=== PATIENT | male | born 1935 | race Caucasian/White ===

== ENCOUNTER → 2017-04-13 | Outpatient (CLI) | payer BC ==
[~2017-04-13] MED LIST: ANT25 PO; ASCO500T3 PO; BRIN1SUS OPB; CHOL1000 PO; CYAN500T PO; DOCU100T7 PO; FOLI400T41 PO; GLUC15002 PO; LUTE20TA PO; MAGN500T4 PO; MELA1TAB3 PO; OMEG10002 PO; PLV75 PO; PYRI100T2 PO; RIVA1DIS TD; SIMV-151 PO; THIA1TAB11 PO; TRAV0.00 OPB; VITA1CAP59 PO; VITA400C15 PO; ZINC1TAB PO; [UNRECOGNIZED DRUG - CODE] PO
[2017-04-13 09:57] LABS: CALCIUM 9.1 mg/dl (8.5-10.1)
[2017-04-13 10:04] LABS: ALT/SGPT 28 U/L (12-78); AST/SGOT 20 U/L (15-37); BLOOD UREA NITROGEN 13 mg/dl (7-18); BUN/CREATININE RATIO 14.9 (10-20); CARBON DIOXIDE 29 mmol/L (21-32); CHLORIDE 108 mmol/L (98-107); GLUCOSE 94 mg/dl (70-99); POTASSIUM 3.9 mmol/L (3.5-5.1); SODIUM 145 mmol/L (136-145)
[2017-04-13 10:06] LABS: ALB/GLOB RATIO 1.5 (0.9-2); ALKALINE PHOSPHATASE 58 U/L (45-117)
== END | disposition home or self-care (01) ==
LOC: C.LAB 06:58
PROVIDERS: ATTEND Chiropractor
DX: M17.9 Osteoarthritis of knee, unspecified (principal); R41.3 Other amnesia; G45.9 Transient cerebral ischemic attack, unspecified

== ENCOUNTER → 2017-07-20 | Outpatient (CLI) | payer BC ==
[2017-07-20 09:49] LABS: BASO % 0.3 %; BASO ABS # 0.02 K/uL (0-0.2); COMPLETE YES; HEMATOCRIT 48.6 % (42-52); IG% 0.2 %; LYMPH ABS # 1.91 K/uL (1.2-3.4); MEAN CORPUSCULAR HEMOGLOBIN 30.3 pg (25-34); MEAN CORPUSCULAR HGB CONC 32.9 g/dl (32-36); MEAN PLATELET VOLUME 11.8 fL (7.4-10.4); MONO % 11.9 %; NEUT % 53.6 %; PLATELET COUNT 116 K/uL (130-400); RED BLOOD COUNT 5.28 M/uL (4.7-6.1); WHITE BLOOD COUNT 5.97 K/uL (4.8-10.8)
[2017-07-20 10:00] LABS: ALT/SGPT 23 U/L (12-78); AST/SGOT 16 U/L (15-37); BLOOD UREA NITROGEN 14 mg/dl (7-18); BUN/CREATININE RATIO 15.4 (10-20); CALCIUM 8.9 mg/dl (8.5-10.1); CARBON DIOXIDE 32 mmol/L (21-32); CHLORIDE 108 mmol/L (98-107); CHOLESTEROL 158 mg/dl (0-200); CREATININE 0.92 mg/dl (0.60-1.40); GLUCOSE 91 mg/dl (70-99); POTASSIUM 4.2 mmol/L (3.5-5.1); SODIUM 144 mmol/L (136-145); TRIGLYCERIDES 132 mg/dl (0-150); VERY LOW DENSITY LIPOPROT CALC 26 mg/dl
[2017-07-20 10:03] LABS: ALB/GLOB RATIO 1.3 (0.9-2); ALKALINE PHOSPHATASE 59 U/L (45-117); HDL CHOLESTEROL 40 mg/dl; LDL CHOLESTEROL CALCULATED 92 mg/dl
== END | disposition home or self-care (01) ==
LOC: C.LAB 07:09
PROVIDERS: ATTEND Nurse Practitioner Family
DX: N40.0 Benign prostatic hyperplasia without lower urinary tract symptoms (principal); E78.00 Pure hypercholesterolemia, unspecified; F01.50 Vascular dementia, unspecified severity, without behavioral disturbance, psychotic disturbance, mood disturbance, and anxiety; E55.9 Vitamin D deficiency, unspecified; D69.6 Thrombocytopenia, unspecified

== ENCOUNTER → 2017-11-18 | Outpatient (CLI) | payer BC | END | disposition home or self-care (01) | LOC: C.PATHSPEC 16:10 | PROVIDERS: ATTEND Physician Assistant | DX: B07.9 Viral wart, unspecified (principal); D23.62 Other benign neoplasm of skin of left upper limb, including shoulder; D23.39 Other benign neoplasm of skin of other parts of face ==

== ENCOUNTER → 2017-11-18 | Outpatient (CLI) | payer BC | END | disposition home or self-care (01) | LOC: C.LABSPEC 16:23 | PROVIDERS: ATTEND Physician Assistant | DX: L98.9 Disorder of the skin and subcutaneous tissue, unspecified (principal) ==

== ENCOUNTER → 2018-01-21 | Outpatient (CLI) | payer BC ==
[~2018-01-21] MED LIST changes: +GALA24CA PO; -[UNRECOGNIZED DRUG - CODE] PO
[2018-01-21 12:14] LABS: BASO % 0.3 %; BASO ABS # 0.02 K/uL (0-0.2); EOS % 1.7 %; EOS ABS # 0.13 K/uL (0-0.5); HEMATOCRIT 46.7 % (42-52); IG# 0.02 K/uL (0.00-0.02); LYMPH % 28.2 %; LYMPH ABS # 2.21 K/uL (1.2-3.4); MEAN CELL VOLUME 90.5 fL (80-100); MEAN CORPUSCULAR HGB CONC 34.3 g/dl (32-36); MEAN PLATELET VOLUME 11.9 fL (7.4-10.4); MONO % 8.3 %; MONO ABS # 0.65 K/uL (0.11-0.59); NEUT % 61.2 %; PLATELET COUNT 129 K/uL (130-400); RED CELL DISTRIBUTION WIDTH CV 13.4 % (11.5-14.5); RED CELL DISTRIBUTION WIDTH SD 44.3 fL (36.4-46.3); WHITE BLOOD COUNT 7.83 K/uL (4.8-10.8)
[2018-01-21 12:45] LABS: ALBUMIN 4.1 gm/dl (3.4-5.0); ALT/SGPT 34 U/L (12-78); BLOOD UREA NITROGEN 12 mg/dl (7-18); CALCIUM 9.6 mg/dl (8.5-10.1); CARBON DIOXIDE 30 mmol/L (21-32); CHOLESTEROL 197 mg/dl (0-200); CREATININE 0.92 mg/dl (0.60-1.40); GLUCOSE 95 mg/dl (70-99); POTASSIUM 4.3 mmol/L (3.5-5.1); SODIUM 140 mmol/L (136-145)
[2018-01-21 12:49] LABS: ALKALINE PHOSPHATASE 68 U/L (45-117); AST/SGOT 22 U/L (15-37); LDL CHOLESTEROL CALCULATED 118 mg/dl
[2018-01-21 14:58] LABS: CREATININE RANDOM URINE 88.4 mg/dl
== END | disposition home or self-care (01) ==
LOC: C.LAB 09:54
PROVIDERS: ATTEND Nurse Practitioner Family
DX: E78.00 Pure hypercholesterolemia, unspecified (principal); E55.9 Vitamin D deficiency, unspecified; D69.6 Thrombocytopenia, unspecified

== ENCOUNTER → 2018-06-03 | Outpatient (CLI) | payer BC | END | disposition home or self-care (01) | LOC: C.LABSPEC 16:53 | PROVIDERS: ATTEND Nurse Practitioner Family | DX: L72.0 Epidermal cyst (principal) ==

== ENCOUNTER 2019-06-02 17:50 | Inpatient (IN) ==
[2019-06-02] MEDS ORDERED: SODIUM CHLORIDE 0.9% 1000ML 1,000 ML IV SCH (19:00)
[2019-06-02 19:23] LABS: Basophils # (auto) 0.02 K/uL (0-0.2); Basophils % (auto) 0.2 %; Eosinophils # (auto) 0.11 K/uL (0-0.5); Eosinophils % (auto) 1.3 %; Hematocrit (blood only) 48.4 % (42-52); Hemoglobin 16.7 g/dL (14.0-18.0); Immature Granulocytes # (auto) 0.02 K/uL (0.00-0.02); Immature Granulocytes % (auto) 0.2 %; Lymphocytes # (auto) 1.49 K/uL (1.2-3.4); Lymphocytes % (auto) 17.9 %; Mean Corpuscular Hgb Conc 34.5 g/dL (32-36); Mean Corpuscular Volume 90.1 fL (80-100); Mean Platelet Volume 12.3 fL (7.4-10.4); Monocytes # (auto) 0.78 K/uL (0.11-0.59); Monocytes % (auto) 9.4 %; Platelet Count 132 K/uL (130-400); RDW Coefficient of Variation 13.4 % (11.5-14.5); Red Blood Count 5.37 M/uL (4.7-6.1); White Blood Count 8.32 K/uL (4.8-10.8)
[2019-06-02 19:39] LABS: Alanine Aminotransferase 34 U/L (12-78); Albumin Level 4.1 gm/dl (3.4-5.0); Aspartate Aminotransferase 24 U/L (15-37); Blood Urea Nitrogen 11 mg/dl (7-18); Calcium 9.6 mg/dl (8.5-10.1); Carbon Dioxide 31 mmol/L (21-32); Chloride 107 mmol/L (98-107); Est GFR (African American) 88.1; Glucose 90 mg/dl (70-99); Potassium 3.8 mmol/L (3.5-5.1); Prothrombin Time 10.3 Seconds (9.0-12.0); Sodium 143 mmol/L (136-145)
--- NOTE | 2019-06-02 19:48 | XRay Report ---
SINGLE VIEW PELVIS CLINICAL HISTORY: Fall. FINDINGS: 2 AP, portable, supine pelvic radiographs are compared to study dated 05/11/2018. The skeleta l structures are osteopenic. There is no radiographic evidence of acute fracture involving the hips o r bony pelvis. Moderate degenerative change and joint space narrowing is seen in the hips. Mild degen erative sclerosis is noted in the sacroiliac joints. Lumbosacral spondylosis is partially imaged. The re are numerous pelvic phleboliths. Brachytherapy seeds are noted in the prostate gland. There is no evidence of bowel obstruction. The overlying soft tissues are normal as imaged. IMPRESSION: No acute bony abnormality is identified. Electronically signed by: Lopez Godoy M.D. 06/02/2019 7:46 PM
--- NOTE | 2019-06-02 19:49 | XRay Report ---
SINGLE VIEW CHEST CLINICAL HISTORY: Generalized weakness. Fall. FINDINGS: An AP, portable, upright chest radiograph is compared to study dated 04/24/2008. The examina tion is degraded by portable technique and patient rotation. The heart is enlarged and there is ath erosclerotic calcification of the thoracic aorta. The pulmonary vasculature is noncongested. Chronic interstitial thickening is similar to previous. There is bibasilar scarring/atelectasis. No airspace consolidation or large pleural effusion is identified. No pneumothorax is seen. The skeletal structur es are osteopenic. The bony thorax is grossly intact. IMPRESSION: Cardiomegaly with no acute cardiopulmonary abnormality. Electronically signed by: Lopez Godoy M.D. 06/02/2019 7:48 PM
[2019-06-02 19:50] LABS: Albumin Globulin Ratio 1.3 (0.9-2); Alkaline Phosphatase 81 U/L (45-117); Bilirubin,Total 0.9 mg/dl (0.2-1); Globulin 3.1 gm/dl (2.5-4.0); Total Protein 7.2 gm/dl (6.4-8.2); Troponin I < 0.015 ng/ml (0-0.045)
--- NOTE | 2019-06-02 20:07 | CT Scan Report ---
CT SCAN OF THE BRAIN WITHOUT IV CONTRAST CLINICAL HISTORY: Fall. COMPARISON STUDY: CT of the brain performed earlier the same day 06/02/2019. TECHNIQUE: Unenhanced axial CT scan of the brain is performed from the vertex to the skull base. A do se lowering technique was utilized adhering to the principles of ALARA. CT DOSE: 1116.45 mGy.cm FINDINGS: Brain parenchyma: There are age-related involutional changes noting moderate subcortical and periven tricular microangiopathic change. 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 Ther e is no hemorrhage, mass effect, or evidence of acute territorial ischemia by CT criteria. Arguello-white matter differentiation is preserved. No extra-axial fluid collection is seen. Ventricles, sulci, cisterns: Prominent secondary to involutional change. Intracranial vasculature: There is atherosclerotic calcification of the cavernous carotid and vertebr al arteries. Calvarium: The skeletal structures are osteopenic. No depressed calvarial fracture is identified. Sinuses and mastoids: The visualized paranasal sinuses are clear. The mastoid air cells are well pneu matized. Orbits: The bony orbits are grossly intact. IMPRESSION: There is no hemorrhage, mass effect, or evidence of acute territorial ischemia by CT jagt janeth. No significant change from today's earlier examination. Electronically signed by: Lopez Godoy M.D. 06/02/2019 8:06 PM
--- NOTE | 2019-06-02 20:12 | CT Scan Report ---
CT SCAN OF THE CERVICAL SPINE CLINICAL HISTORY: Fall. COMPARISON STUDY: CT of the cervical spine performed earlier the same day 06/02/2019. TECHNIQUE: CT scan of the cervical spine is performed from the skull base to the upper thoracic spine . Images are reviewed in the axial, sagittal, and coronal planes. IV contrast was not administered fo r this examination. A dose lowering technique was utilized adhering to the principles of ALARA. FINDINGS: Skeletal structures: The skeletal structures are osteopenic. There is no evidence of fracture or subl uxation involving the cervical spine. Vertebral body height and alignment are maintained. There is st raightening of the cervical lordosis with reversal centered at C4-C5. Anterior osteophytes are seen t hroughout. The odontoid process and lateral masses are intact. The atlantoaxial articulation is prese rved noting productive degenerative change. The spinous processes appear intact. There is moderate mu ltilevel cervical spondylosis. Uncovertebral and facet arthropathy contribute to neural foraminal kayla nosis at several levels. Intervertebral discs: There is advanced disc space narrowing seen at C5-C6 and C6-C7. Moderate disc s pace narrowing is seen at C4-C5. Central canal: Posterior disc osteophyte complexes at C4-C5, C5-C6, and C6-C7 likely contribute to ac quired compromise of the central canal. Soft tissues: The prevertebral and paraspinous soft tissues are within normal limits. A large calcifi cation is noted in the left thyroid lobe. Calvarium: The visualized calvarium at the skull base appears intact. Brain parenchyma: Partially visualized brain parenchyma the skull base is within normal limits. Sinuses and mastoids: The visualized paranasal sinuses are clear. The mastoid air cells are well pneu matized. Lung apices: Clear as visualized. IMPRESSION: There is no evidence of fracture or subluxation involving the cervical spine. No change f rom today's earlier examination. Electronically signed by: Lopez Godoy M.D. 06/02/2019 8:11 PM
[2019-06-02 20:27] LABS: Appearance Urine Clear (Clear); Bilirubin Urine Negative (Negative); Blood Urine Negative (Negative); Color Urine Yellow; Glucose Urine UA Negative (Negative); Ketones Urine Negative (Negative); Leukocyte Esterase Urine Negative (Negative); Nitrite Urine Negative (Negative); Protein Urine Negative (Negative); Specific Gravity Urine 1.015 (1.000-1.030); Urobilinogen Urine Negative (Negative); pH Urine 7.5 (4.5-7.5)
--- NOTE | 2019-06-02 23:45 | History & Physical Report ---
Date of Service June 02, 2019 Assessment & Plan (1) Altered mental status: Altered mental status confusion/dementia/anxiety with depression- Underlying vascular dementia that is likely progressive. Decreased oral intake. Hold trazodone, lorazepam and Transderm scopolamine He may have had an additional CVA recently, however, CT head is normal, and will likely need sedated to perform an MRI. Consult neurology. For now, hold nutraceuticals to minimize pill taking: Vitamin C, calcium carbona te, vitamin D3, maine, lutein, mag oxide, fish oil Present on Admission?: Yes (2) Vascular dementia: Continue clopidogrel. Present on Admission?: Yes (3) Recurrent falls: Likely multifactorial: Progressive dementia. Recent institution of Lorazepam, which will be held. Had taken his first dose of trazodone 100 mg at bedtime last night, which will also be held, may be contributing to falls associated with orthostatic hypotensi on. Present on Admission?: Yes (4) Facial trauma: Facial trauma/facial contusion/abrasions- Imaging negative for fractures. Consult wound care Present on Admission?: Yes (5) Facial contusion: See above Present on Admission?: Yes (6) Hypercholesterolemia: Appears to no longer be on a statin. Present on Admission?: Yes (7) Depression with anxiety: Vascular dementia/depression with anxiety- Progressive. Hold lorazepam due to potential side effects. Hold trazodone due to potential side effect of orthostatic hypotension and confusion. Present on Admission?: Yes History of Present Illness Chief Complaint: The patient presents to the emergency department for the second time today with recurrent falls. Primary Care Provider: [facility] The patient is a 84-year-old male with a past medical history including vascular dementia, who has had progressively worsening confusion over the past few months and more recently has had recurrent falls. He was assessed in the ED this morning, was released back to [facility] in [place], but was brought back into the emergency department by his daughter this evening, due to worsening confusion and a fall this morning. She reports that he has been getting progressively weaker. She was concerned that Ativan he had been given to help with agitation may have made things worse. Of note, the patient was given trazodone 100 mg at bedtime for the first time last night. Allergies Allergy/AdvReac Type Severity Reaction Status Date / Time cashew nut Allergy Intermediate SWELLING Verified 06/02/19 05:39 OF TONGUE AND THROAT galantamine Allergy Unknown ON Verified 06/02/19 05:39 [facility] gluten Allergy Unknown ON Verified 06/02/19 05:39 [facility] wheat Allergy Unknown ON Verified 06/02/19 05:39 [facility] lactase [From [facility]] AdvReac Unknown ON [facility] Verified 06/02/19 05:39 LIST Home Medications Home Medications Medication Instructions Recorded Confirmed Type ascorbic acid (vitamin C) 500 mg 500 mg PO QAM cap 03/23/19 06/02/19 History capsule calcium carbonate 500 mg calcium 500 mg PO QAM tab 03/23/19 06/02/19 History (1,250 mg) tablet cyanocobalamin (vit B-12) 500 mcg 500 mcg PO BID tab 03/23/19 06/02/19 History tablet maine (Zingiber officinalis) 250 250 mg PO BID cap 03/23/19 06/02/19 History mg capsule lutein 20 mg tablet 20 mg PO QAM tab 03/23/19 06/02/19 History magnesium oxide 400 mg (241.3 mg 400 mg PO QAM #60 tab 03/23/19 06/02/19 History magnesium) tablet omega-3 acid ethyl esters 1 gram 1 g PO QAM #60 cap 03/23/19 06/02/19 History capsule omeprazole 20 mg tablet,delayed 20 mg PO QAM tab 03/23/19 06/02/19 History release cholecalciferol (vitamin D3) 2,000 2,000 units PO BIDM tab 05/26/19 06/02/19 History unit tablet trazodone 100 mg tablet 100 mg PO HS #30 tab 06/01/19 06/02/19 Rx clopidogrel 75 mg PO QAM 06/02/19 06/02/19 History glucos sul [id number] 1 cap PO QAM 06/02/19 06/02/19 History [Glucosamine Chondroitin] lorazepam 1 mg PO TID PRN 06/02/19 06/02/19 History peg 400-propylene glycol [Systane 1 drp OPHTHALMIC (EYE) DAILY 06/02/19 06/02/19 History Ultra] scopolamine base [Transderm-Scop] 1 patch TRANSDERMAL Q3D 06/02/19 06/02/19 History tafluprost (PF) [Zioptan (PF)] 1 drp OPB QPM 06/02/19 06/02/19 History zinc gluconate 30 mg PO .ON HOLD 06/02/19 06/02/19 History Past Med/Surg History Medical History Vitamin D deficiency (Chronic) Vascular dementia (Chronic) Urinary incontinence (Chronic) Hypercholesterolemia (Chronic) Hemorrhoids (Chronic) Hearing loss (Chronic) Glaucoma (Chronic) Depression with anxiety (Chronic) Chronic constipation (Chronic) Candidal intertrigo (Chronic) Benign prostate hyperplasia (Chronic) History of actinic keratosis (Resolved) History of basal cell carcinoma (Resolved) History of seborrheic dermatitis (Resolved) History of seborrheic keratosis (Resolved) History of stroke (Resolved) History of transient cerebral ischemia (Resolved) Personal history of prostate cancer (Resolved) Thrombocytopenia (Resolved) Surgical History History of prostate surgery S/P cataract surgery S/P hernia repair Family History Sister Breast cancer Lung cancer Mother Diabetes Dementia Social History Preferred Language: Armenian Communication Ability: Impaired Buyer Liaison Required: No Beliefs That Will Affect Care: None marital status: Single Current Living Situation: Personal Care Facility current occupational status: retired Other Information That Helps Us Care for You: No Feels Safe at Home: Yes Safety Concerns: Feels Safe At This Time Smoking Status: Never smoker Hx Alcohol Use: No Hx Substance Use: No Childhood Exposure to Second-Hand Smoke: No Dental Care, Regularly: Yes Physical Activity Frequency: 5-6 Times per Week Seatbelt Use: always Sunscreen Use: Yes Review of Systems Review of Systems: Unobtainable due to cognitive status Physical Exam Physical Exam: The patient is awake, alert, oriented x1. He has surface abrasions on forehead, nose and cheeks bilaterally. Sitting upright in bed and in no acute distress. HEENT--PERRL, EOMI, mucous membranes and oropharynx dry. Neck--supple. No JVD. No bruits. Thyroid normal, trachea midline, no adenopathy. Heart--normal S1 and S2. No murmurs, rubs or gallops. Lungs--clear bilaterally, no respiratory distress, no accessory muscle use. Abdomen--normal bowel sounds and soft. Nontender. Nondistended. Extremities--no cyanosis or clubbing. No edema. There are good distal pulses b/l. Dermatologic--fresh surface abrasions noted on forehead, nose, bilateral cheeks. Scattered ecchymoses. Neurologic--cranial nerves II through XII grossly intact. Rheumatologic--normal range of motion. Psychiatric--confused. Results & Data Vital Signs (Past 12 Hours) Vital Signs Temp Pulse Pulse Resp BP BP Pulse Ox 06/02/19 22:52 60 18 137/79 97 06/02/19 22:21 59 L 20 146/87 H 94 06/02/19 20:13 60 18 142/74 H 92 06/02/19 19:29 59 L 17 130/75 06/02/19 17:56 98.1 F 83 17 141/78 H 92 Laboratory Results Laboratory Results WBC 8.32 K/uL (4.8-10.8) 06/02/19 17: RBC 5.37 M/uL (4.7-6.1) 06/02/19 17:29 Hgb 16.7 g/dL (14.0-18.0) 06/02/19 17:29 Hct 48.4 % (42-52) 06/02/19 17:29 MCV 90.1 fL (80-100) 06/02/19 17:29 MCH 31.1 pg (25-34) 06/02/19 17:29 MCHC 34.5 g/dL (32-36) 06/02/19 17:29 RDW Std Deviation 44.0 fL (36.4-46.3) 06/02/19 17:29 RDW Coeff of Irais 13.4 % (11.5-14.5) 06/02/19 17:29 Plt Count 132 K/uL (130-400) 06/02/19 17:29 MPV 12.3 fL (7.4-10.4) H 06/02/19 17:29 Immature Gran % (Auto) 0.2 % 06/02/19 17:29 Neut % (Auto) 71.0 % 06/02/19 17:29 Lymph % (Auto) 17.9 % 06/02/19 17:29 [place] % (Auto) 9.4 % 06/02/19 17: Eos % (Auto) 1.3 % 06/02/19 17:29 Baso % (Auto) 0.2 % 06/02/19 17: Immature Gran # (Auto) 0.02 K/uL (0.00-0.02) 06/02/19 17: Neut # (Auto) 5.90 K/uL (1.4-6.5) 06/02/19 17: Lymph # (Auto) 1.49 K/uL (1.2-3.4) 06/02/19 17: [place] # (Auto) 0.78 K/uL (0.11-0.59) H 06/02/19 17: Eos # (Auto) 0.11 K/uL (0-0.5) 06/02/19 17: Baso # (Auto) 0.02 K/uL (0-0.2) 06/02/19 17: PT 10.3 Seconds (9.0-12.0) 06/02/19 17: INR 1.0 (0.9-1.1) 06/02/19 17: Sodium 143 mmol/L (136-145) 06/02/19 17: Potassium 3.8 mmol/L (3.5-5.1) 06/02/19 17: Chloride 107 mmol/L (98-107) 06/02/19 17: Carbon Dioxide 31 mmol/L (21-32) 06/02/19 17:29 Anion Gap 5.0 (3-11) 06/02/19 17:29 BUN 11 mg/dl (7-18) 06/02/19 17: Creatinine 0.91 mg/dl (0.6-1.4) 06/02/19 17:29 Est Cr Clr Drug Dosing Not Reportable 06/02/19 17:29 Est GFR ( Amer) 88.1 06/02/19 17:29 Est GFR (Non-Af Amer) 76.0 06/02/19 17:29 BUN/Creatinine Ratio 12.0 (10-20) 06/02/19 17:29 Glucose 90 mg/dl (70-99) 06/02/19 17:29 Calcium 9.6 mg/dl (8.5-10.1) 06/02/19 17:29 Total Bilirubin 0.9 mg/dl (0.2-1) 06/02/19 17:29 AST 24 U/L (15-37) 06/02/19 17:29 ALT 34 U/L (12-78) 06/02/19 17:29 Alkaline Phosphatase 81 U/L (45-117) 06/02/19 17:29 Troponin I < 0.015 ng/ml (0-0.045) 06/02/19 17: Total Protein 7.2 gm/dl (6.4-8.2) 06/02/19 17: Albumin 4.1 gm/dl (3.4-5.0) 06/02/19 17: Globulin 3.1 gm/dl (2.5-4.0) 06/02/19 17: Albumin/Globulin Ratio 1.3 (0.9-2) 06/02/19 17: TSH 1.820 uIu/ml (0.300-4.500) 06/02/19 17:29 Urine Color Yellow 06/02/19 20:11 Urine Appearance Clear (Clear) 06/02/19 20:11 Urine pH 7.5 (4.5-7.5) 06/02/19 20:11 Ur Specific [place] 1.015 (1.000-1.030) 06/02/19 20:11 Urine Protein Negative (Negative) 06/02/19 20:11 Urine Glucose (UA) Negative (Negative) 06/02/19 20:11 Urine Ketones Negative (Negative) 06/02/19 20:11 Urine Blood Negative (Negative) 06/02/19 20:11 Urine Nitrite Negative (Negative) 06/02/19 20:11 Urine Bilirubin Negative (Negative) 06/02/19 20:11 Urine Urobilinogen Negative (Negative) 06/02/19 20:11 Ur Leukocyte Esterase Negative (Negative) 06/02/19 20:11 Diagnostic Findings [facility], [place] [phone] XRay Report Patient: LUKEDANG BENTONAdmit Date: 06/02/19 MR#: [id number]: [id number] [employer] Acct ID:[id number]: Date: [address] [place] [address] Zip: [place] [address] Age: 84Location: ED Sex: M Room/Bed: Att Phy: Diagnosis: CONFUSION Erica [facility]: [facility] Fam Phy: Interpreting Phy: Lopez Godoy MD Admit Phy: Ordering Phy: Corky Smith, cc: ~ SINGLE VIEW PELVIS CLINICAL HISTORY: Fall. FINDINGS: 2 AP, portable, supine pelvic radiographs are compared to study dated 05/11/2018. The skeletal structures are osteopenic. There is no radiographic evidence of acute fracture involving the hips or bony pelvis. Moderate degenerative change and joint space narrowing is seen in the hips. Mild degenerative sclerosis is noted in the sacroiliac joints. Lumbosacral spondylosis is partially imaged. There are numerous pelvic phleboliths. Brachytherapy seeds are noted in the prostate gland. There is no evidence of bowel obstruction. The overlying soft tissues are normal as imaged. IMPRESSION: No acute bony abnormality is identified. Electronically signed by: Lopez Godoy M.D. 06/02/2019 7:46 PM Dictated: 06/02/191944 Transcribed: 06/02/191944 [place], [place] [phone] CT Scan Report Patient: DANG ROSADOAdmit Date: 06/02/19 MR#: [id number]: [id number] [employer] Acct ID:[id number]: Date: [address] [place] [address] Zip: [place] [id number] Age: 84Location: ED Sex: M Room/Bed: Att Phy: Diagnosis: CONFUSION Erica [facility]: [facility]: [facility]/19 Fam Phy: Interpreting Phy: Lopze Godoy MD Admit Phy: Ordering Phy: Corky Smith DO cc: ~ CT SCAN OF THE BRAIN WITHOUT IV CONTRAST CLINICAL HISTORY: Fall. COMPARISON STUDY: CT of the brain performed earlier the same day 06/02/2019. TECHNIQUE: Unenhanced axial CT scan of the brain is performed from the vertex to the skull base. A dose lowering technique was utilized adhering to the [place] of DIANNA. CT DOSE: 1116.45 mGy.cm FINDINGS: Brain parenchyma: There are age-related involutional changes noting moderate subcortical and periventricular microangiopathic change. 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 There is no hemorrhage, mass effect, or evidence of acute territorial ischemia by CT criteria. Arguello-white matter differentiation is preserved. No extra-axial fluid collection is seen. Ventricles, sulci, cisterns: Prominent secondary to involutional change. Intracranial vasculature: There is atherosclerotic calcification of the cavernous carotid and vertebral arteries. Calvarium: The skeletal structures are osteopenic. No depressed calvarial fracture is identified. Sinuses and mastoids: The visualized paranasal sinuses are clear. The mastoid air cells are well pneumatized. Orbits: The bony orbits are grossly intact. IMPRESSION: There is no hemorrhage, mass effect, or evidence of acute territorial ischemia by CT criteria. No significant change from today's earlier examination. Electronically signed by: Lopez Godoy M.D. 06/02/2019 8:06 PM Dictated: 06/02/192003 Transcribed: 06/02/192003 ASHLEEDANG EDILIA 84 M [address] [place], [place] [phone] CT Scan Report Patient: DANG ROSADOAdmit Date: 06/02/19 MR#: [id number]: [id number] [employer] Acct ID:[id number]: Date: [address] [place] [address] Zip: [place] [address] Age: 84Location: ED Sex: M Room/Bed: Att Phy: Diagnosis: CONFUSION Erica [facility]: 06/02[facility] Fam Phy: Interpreting Phy: Lopez Godoy MD Admit Phy: Ordering Phy: Corky Smith DO cc: ~ CT SCAN OF THE CERVICAL SPINE CLINICAL HISTORY: Fall. COMPARISON STUDY: CT of the cervical spine performed earlier the same day 06/02/2019. TECHNIQUE: CT scan of the cervical spine is performed from the skull base to the upper thoracic spine. Images are reviewed in the axial, sagittal, and coronal planes. IV contrast was not administered for this examination. A dose lowering technique was utilized adhering to the principles of ALARA. FINDINGS: Skeletal structures: The skeletal structures are osteopenic. There is no evidence of fracture or subluxation involving the cervical spine. Vertebral body height and alignment are maintained. There is straightening of the cervical lordosis with reversal centered at C4-C5. Anterior osteophytes are seen throughout. The odontoid process and lateral masses are intact. The atlantoaxial articulation is preserved noting productive degenerative change. The spinous processes appear intact. There is moderate multilevel cervical spondylosis. Uncovertebral and facet arthropathy contribute to neural foraminal stenosis at several levels. Intervertebral discs: There is advanced disc space narrowing seen at C5-C6 and C6-C7. Moderate disc space narrowing is seen at C4-C5. Central canal: Posterior disc osteophyte complexes at C4-C5, C5-C6, and C6-C7 likely contribute to acquired compromise of the central canal. Soft tissues: The prevertebral and paraspinous soft tissues are within normal limits. A large calcification is noted in the left thyroid lobe. Calvarium: The visualized calvarium at the skull base appears intact. Brain parenchyma: Partially visualized brain parenchyma the skull base is within normal limits. Sinuses and mastoids: The visualized paranasal sinuses are clear. The mastoid air cells are well pneumatized. Lung apices: Clear as visualized. IMPRESSION: There is no evidence of fracture or subluxation involving the cervical spine. No change from today's earlier examination. Electronically signed by: Lopez Godoy M.D. 06/02/2019 8:11 PM Dictated: 06/02/192006 Transcribed: 06/02/192006 Code Status & VTE Plan Code Status DNR/DNI no resuscitation VTE Prophylaxis Plan VTE Prophylaxis will be ordered: Yes PG Care Time/CCT Total # of Minutes Spent Total Time Spent with Patient: Total time spent is greater than 50% in coordination of care (as documented) at patient's floor/unit and/or counseling patient: (1) Facial trauma Encounter type: initial encounter Qualified Code(s): S09.93XA - Unspecified injury of face, initial encounter (2) Altered mental status Altered mental status type: unspecified Qualified Code(s): R41.82 - Altered mental status, unspecified (3) Facial contusion Encounter type: initial encounter Qualified Code(s): S00.83XA - Contusion of other part of head, initial encounter (4) Vascular dementia Dementia behavioral disturbance: without behavioral disturbance Qualified Code(s): F01.50 - Vascular dementia without behavioral disturbance
--- NOTE | 2019-06-02 23:51 | Emergency Department Note ---
Entered by Jade Reed acting as a scribe for Corky Smith DO History of Present Illness General Chief complaint: Fall Stated complaint: CONFUSION Source: family (daugther) History of Present Illness Provider complaint: fall Onset (ago): hour(s) (this morning) Radiation: non-radiation Severity: similar to prior episodes Maximum Pain Intensity: 0 Relieved By: + none Exacerbated By: + none The patient is a 84 year old male who presents to the Emergency Room with complaints of recurrent falls. The patients daughter reports that the patient has a history of dementia but has significantly worsened recently. She states that he has been falling more frequently since Thursday. She reports that his most recent fall was this morning the patient was evaluated in the ER. Patient was discharged back and has had persistent falls and confusion. She notes that he has been more weak and disoriented. She notes that he takes Ativan. Home Medications Home Medications Medication Instructions Recorded Confirmed Type ascorbic acid (vitamin C) 500 mg 500 mg PO QAM cap 03/23/19 06/02/19 History capsule calcium carbonate 500 mg calcium 500 mg PO QAM tab 03/23/19 06/02/19 History (1,250 mg) tablet cyanocobalamin (vit B-12) 500 mcg 500 mcg PO BID tab 03/23/19 06/02/19 History tablet maine (Zingiber officinalis) 250 250 mg PO BID cap 03/23/19 06/02/19 History mg capsule lutein 20 mg tablet 20 mg PO QAM tab 03/23/19 06/02/19 History magnesium oxide 400 mg (241.3 mg 400 mg PO QAM #60 tab 03/23/19 06/02/19 History magnesium) tablet omega-3 acid ethyl esters 1 gram 1 g PO QAM #60 cap 03/23/19 06/02/19 History capsule omeprazole 20 mg tablet,delayed 20 mg PO QAM tab 03/23/19 06/02/19 History release cholecalciferol (vitamin D3) 2,000 2,000 units PO BIDM tab 05/26/19 06/02/19 History unit tablet trazodone 100 mg tablet 100 mg PO HS #30 tab 06/01/19 06/02/19 Rx clopidogrel 75 mg PO QAM 06/02/19 06/02/19 History glucos sul [id number] 1 cap PO QAM 06/02/19 06/02/19 History [Glucosamine Chondroitin] lorazepam 1 mg PO TID PRN 06/02/19 06/02/19 History peg 400-propylene glycol [Systane 1 drp OPHTHALMIC (EYE) DAILY 06/02/19 06/02/19 History Ultra] scopolamine base [Transderm-Scop] 1 patch TRANSDERMAL Q3D 06/02/19 06/02/19 History tafluprost (PF) [Zioptan (PF)] 1 drp OPB QPM 06/02/19 06/02/19 History zinc gluconate 30 mg PO .ON HOLD 06/02/19 06/02/19 History Allergies Allergy/AdvReac Type Severity Reaction Status Date / Time cashew nut Allergy Intermediate SWELLING Verified 06/02/19 05:39 OF TONGUE AND THROAT galantamine Allergy Unknown ON Verified 06/02/19 05:39 [facility] L[facility] gluten Allergy Unknown ON Verified 06/02/19 05:39 [facility] wheat Allergy Unknown ON Verified 06/02/19 05:39 [facility] lactase [From [facility]] AdvReac Unknown ON [facility] Verified 06/02/19 05:39 LIST Past Med/Surg History Medical History Vitamin D deficiency (Chronic) Vascular dementia (Chronic) Urinary incontinence (Chronic) Hypercholesterolemia (Chronic) Hemorrhoids (Chronic) Hearing loss (Chronic) Glaucoma (Chronic) Depression with anxiety (Chronic) Chronic constipation (Chronic) Candidal intertrigo (Chronic) Benign prostate hyperplasia (Chronic) History of actinic keratosis (Resolved) History of basal cell carcinoma (Resolved) History of seborrheic dermatitis (Resolved) History of seborrheic keratosis (Resolved) History of stroke (Resolved) History of transient cerebral ischemia (Resolved) Personal history of prostate cancer (Resolved) Thrombocytopenia (Resolved) Surgical History History of prostate surgery S/P cataract surgery S/P hernia repair Family History Sister Breast cancer Lung cancer Mother Diabetes Dementia Social History Preferred Language: Kinyarwanda marital status: Single Current Living Situation: Significant Other current occupational status: retired Feels Safe at Home: Yes Smoking Status: Unknown if ever smoked Hx Alcohol Use: No Hx Substance Use: No Childhood Exposure to Second-Hand Smoke: No Dental Care, Regularly: Yes Physical Activity Frequency: 5-6 Times per Week Seatbelt Use: always Sunscreen Use: Yes Review of Systems See HPI for pertinent positives & negatives. and A total of 10 systems reviewed and were otherwise negative Physical Exam Vital Signs Vital Signs - 24 hr 06/02/19 17:56 06/02/19 19:29 06/02/19 20:13 Temperature 36.7 C Temperature Source Oral Sepsis Recent Fever Within 48 Hours No Sepsis New/Unexplained Change in Mental Status No Sepsis Action Taken by Nursing No Action Required Pulse Rate 83 Pulse Rate [Finger] 59 L 60 Respiratory Rate 17 17 18 Blood Pressure 141/78 H Blood Pressure [Right Arm] 130/75 142/74 H Blood Pressure Mean 99 Blood Pressure Mean [Right Arm] 93 96 Pulse Oximetry 92 92 Oxygen Delivery Method Room Air Room Air Room Air 06/02/19 22:21 06/02/19 22:52 Temperature Temperature Source Sepsis Recent Fever Within 48 Hours Sepsis New/Unexplained Change in Mental Status Sepsis Action Taken by Nursing Pulse Rate Pulse Rate [Finger] 59 L 60 Respiratory Rate 20 18 Blood Pressure Blood Pressure [Right Arm] 146/87 H 137/79 Blood Pressure Mean Blood Pressure Mean [Right Arm] 106 98 Pulse Oximetry 94 97 Oxygen Delivery Method Room Air Room Air GENERAL: alert, laying in bed, disheveled, confused HEAD: normal cephalic, bruising in left eye and forehead. EYE EXAM: Some conjunctival hemorrhage on the left, PERRL and EOM's grossly intact OROPHARYNX: no exudate, no erythema, lips, buccal mucosa, and tongue normal and mucous membranes are moist EARS: TMs clear b/l NECK: supple, no nuchal rigidity, no adenopathy, non-tender CHEST: stable to compression anteriorly and posteriorly LUNGS: clear to auscultation. Normal chest wall mechanics HEART: no murmurs, S1 normal and S2 normal ABDOMEN: abdomen soft, non-tender, normo-active bowel sounds, no masses, no rebound or guarding. PELVIS: stable to compression anteriorly and posteriorly BACK: Back is symmetrical on inspection and there is no deformity, no midline tenderness, no CVA tenderness. UPPER EXTREMITIES: full active and passive range of motion of all joints without tenderness to palpation LOWER EXTREMITIES: full active and passive range of motion of all joints without tenderness to palpation NEURO EXAM: Awake, not oriented to year, place, or daughter, cranial nerves II- XII grossly intact, normal speech, moving all extremities nonfocal. Course 1855: The patient was evaluated in room B3B, and a complete history and physical examination were performed. 2000: I reevaluated the patient and updated him on his results. 2144: I reviewed the patient's case with Dr. Jamil [facility] Hospitalist. He will evaluate the patient for further management. Consultations Consultation #1: Dr. Jamil [facility] Hospitalist Time: 21:45 Administered Medications Discontinued Medications Sodium Chloride (Nss 1000ml) 1,000 mls @ 999 mls/hr IV .Q1H1M DEIRDRE Stop: 06/02/19 20:00 Last Infusion: 06/02/19 21:35 Dose: 0 mls/hr Documented by: [id number] Admin: 06/02/19 19:33 Dose: 999 mls/hr Documented by: [id number] Medical Decision Making Differential Diagnosis Differential diagnoses include major intracranial, cervical, spinal, thoracic, abdominal, pelvic and neurologic injury. Fracture, contusion, sprain, strain, laceration, abrasions included as well. Medical Records Attestation: I reviewed the patient's medical records. Home Medications Current Medication List: was personally reviewed by me Laboratory Data Attestation: I reviewed the patient's lab results. Result diagrams: 06/02/19 17:29 06/02/19 17:29 Lab Results 06/02/19 06/02/19 06/02/19 Range/Units 17:29 17:29 17:29 WBC 8.32 (4.8-10.8) K/uL RBC 5.37 (4.7-6.1) M/uL Hgb 16.7 (14.0-18.0) g/dL Hct 48.4 (42-52) % MCV 90.1 (80-100) fL MCH 31.1 (25-34) pg MCHC 34.5 (32-36) g/dL RDW Std Deviation 44.0 (36.4-46.3) fL RDW Coeff of Irais 13.4 (11.5-14.5) % Plt Count 132 (130-400) K/uL MPV 12.3 H (7.4-10.4) fL Immature Gran % (Auto) 0.2 % Neut % (Auto) 71.0 % Lymph % (Auto) 17.9 % Marin % (Auto) 9.4 % Eos % (Auto) 1.3 % Baso % (Auto) 0.2 % Immature Gran # (Auto) 0.02 (0.00-0.02) K/uL Neut # (Auto) 5.90 (1.4-6.5) K/uL Lymph # (Auto) 1.49 (1.2-3.4) K/uL Marin # (Auto) 0.78 H (0.11-0.59) K/uL Eos # (Auto) 0.11 (0-0.5) K/uL Baso # (Auto) 0.02 (0-0.2) K/uL PT 10.3 (9.0-12.0) Seconds INR 1.0 (0.9-1.1) Sodium 143 (136-145) mmol/L Potassium 3.8 (3.5-5.1) mmol/L Chloride 107 (98-107) mmol/L Carbon Dioxide 31 (21-32) mmol/L Anion Gap 5.0 (3-11) BUN 11 (7-18) mg/dl Creatinine 0.91 (0.6-1.4) mg/dl Est Cr Clr Drug Dosing Not Reportable Est GFR ( Amer) 88.1 Est GFR (Non-Af Amer) 76.0 BUN/Creatinine Ratio 12.0 (10-20) Glucose 90 (70-99) mg/dl Calcium 9.6 (8.5-10.1) mg/dl Total Bilirubin 0.9 (0.2-1) mg/dl AST 24 (15-37) U/L ALT 34 (12-78) U/L Alkaline Phosphatase 81 (45-117) U/L Troponin I < 0.015 (0-0.045) ng/ml Total Protein 7.2 (6.4-8.2) gm/dl Albumin 4.1 (3.4-5.0) gm/dl Globulin 3.1 (2.5-4.0) gm/dl Albumin/Globulin Ratio 1.3 (0.9-2) TSH 1.820 (0.300-4.500) uIu/ml Urine Color Urine Appearance (Clear) Urine pH (4.5-7.5) Ur Specific [place] (1.000-1.030) Urine Protein (Negative) Urine Glucose (UA) (Negative) Urine Ketones (Negative) Urine Blood (Negative) Urine Nitrite (Negative) Urine Bilirubin (Negative) Urine Urobilinogen (Negative) Ur Leukocyte Esterase (Negative) 06/02/19 Range/Units 20:11 WBC (4.8-10.8) K/uL RBC (4.7-6.1) M/uL Hgb (14.0-18.0) g/dL Hct (42-52) % MCV (80-100) fL MCH (25-34) pg MCHC (32-36) g/dL RDW Std Deviation (36.4-46.3) fL RDW Coeff of Irais (11.5-14.5) % Plt Count (130-400) K/uL MPV (7.4-10.4) fL Immature Gran % (Auto) % Neut % (Auto) % Lymph % (Auto) % Marin % (Auto) % Eos % (Auto) % Baso % (Auto) % Immature Gran # (Auto) (0.00-0.02) K/uL Neut # (Auto) (1.4-6.5) K/uL Lymph # (Auto) (1.2-3.4) K/uL Marin # (Auto) (0.11-0.59) K/uL Eos # (Auto) (0-0.5) K/uL Baso # (Auto) (0-0.2) K/uL PT (9.0-12.0) Seconds INR (0.9-1.1) Sodium (136-145) mmol/L Potassium (3.5-5.1) mmol/L Chloride (98-107) mmol/L Carbon Dioxide (21-32) mmol/L Anion Gap (3-11) BUN (7-18) mg/dl Creatinine (0.6-1.4) mg/dl Est Cr Clr Drug Dosing Est GFR ( Amer) Est GFR (Non-Af Amer) BUN/Creatinine Ratio (10-20) Glucose (70-99) mg/dl Calcium (8.5-10.1) mg/dl Total Bilirubin (0.2-1) mg/dl AST (15-37) U/L ALT (12-78) U/L Alkaline Phosphatase (45-117) U/L Troponin I (0-0.045) ng/ml Total Protein (6.4-8.2) gm/dl Albumin (3.4-5.0) gm/dl Globulin (2.5-4.0) gm/dl Albumin/Globulin Ratio (0.9-2) TSH (0.300-4.500) uIu/ml Urine Color Yellow Urine Appearance Clear (Clear) Urine pH 7.5 (4.5-7.5) Ur Specific [place] 1.015 (1.000-1.030) Urine Protein Negative (Negative) Urine Glucose (UA) Negative (Negative) Urine Ketones Negative (Negative) Urine Blood Negative (Negative) Urine Nitrite Negative (Negative) Urine Bilirubin Negative (Negative) Urine Urobilinogen Negative (Negative) Ur Leukocyte Esterase Negative (Negative) Imaging Data Radiologist's Impression: Radiology results as stated below per my review and the radiologist's interpretation: CT SCAN OF THE CERVICAL SPINE CLINICAL HISTORY: Fall. COMPARISON STUDY: CT of the cervical spine performed earlier the same day 06/02/2019. TECHNIQUE: CT scan of the cervical spine is performed from the skull base to the upper thoracic spine. Images are reviewed in the axial, sagittal, and coronal planes. IV contrast was not administered for this examination. A dose lowering technique was utilized adhering to the principles of ALARA. FINDINGS: Skeletal structures: The skeletal structures are osteopenic. There is no evidence of fracture or subluxation involving the cervical spine. Vertebral body height and alignment are maintained. There is straightening of the cervical lordosis with reversal centered at C4-C5. Anterior osteophytes are seen throughout. The odontoid process and lateral masses are intact. The atlantoaxial articulation is preserved noting productive degenerative change. The spinous processes appear intact. There is moderate multilevel cervical spondylosis. Uncovertebral and facet arthropathy contribute to neural foraminal stenosis at several levels. Intervertebral discs: There is advanced disc space narrowing seen at C5-C6 and C6-C7. Moderate disc space narrowing is seen at C4-C5. Central canal: Posterior disc osteophyte complexes at C4-C5, C5-C6, and C6-C7 likely contribute to acquired compromise of the central canal. Soft tissues: The prevertebral and paraspinous soft tissues are within normal limits. A large calcification is noted in the left thyroid lobe. Calvarium: The visualized calvarium at the skull base appears intact. Brain parenchyma: Partially visualized brain parenchyma the skull base is within normal limits. Sinuses and mastoids: The visualized paranasal sinuses are clear. The mastoid air cells are well pneumatized. Lung apices: Clear as visualized. IMPRESSION: There is no evidence of fracture or subluxation involving the cervical spine. No change from today's earlier examination. Electronically signed by: Lopez Godoy M.D. 06/02/2019 8:[address] SCAN OF THE BRAIN WITHOUT IV CONTRAST CLINICAL HISTORY: Fall. COMPARISON STUDY: CT of the brain performed earlier the same day 06/02/2019. TECHNIQUE: Unenhanced axial CT scan of the brain is performed from the vertex to the skull base. A dose lowering technique was utilized adhering to the principles of ALARA. CT DOSE: 1116.45 mGy.cm FINDINGS: Brain parenchyma: There are age-related involutional changes noting moderate subcortical and periventricular microangiopathic change. 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 There is no hemorrhage, mass effect, or evidence of acute territorial ischemia by CT criteria. Arguello-white matter differentiation is preserved. No extra-axial fluid collection is seen. Ventricles, sulci, cisterns: Prominent secondary to involutional change. Intracranial vasculature: There is atherosclerotic calcification of the cavernous carotid and vertebral arteries. Calvarium: The skeletal structures are osteopenic. No depressed calvarial fracture is identified. Sinuses and mastoids: The visualized paranasal sinuses are clear. The mastoid air cells are well pneumatized. Orbits: The bony orbits are grossly intact. IMPRESSION: There is no hemorrhage, mass effect, or evidence of acute territorial ischemia by CT criteria. No significant change from today's earlier examination. Electronically signed by: Lopez Godoy M.D. 06/02/2019 8:06 PM SINGLE VIEW CHEST CLINICAL HISTORY: Generalized weakness. Fall. FINDINGS: An AP, portable, upright chest radiograph is compared to study dated 04/24/2008. The examination is degraded by portable technique and patient rotation. The heart is enlarged and there is atherosclerotic calcification of the thoracic aorta. The pulmonary vasculature is noncongested. Chronic interstitial thickening is similar to previous. There is bibasilar scarring/atelectasis. No airspace consolidation or large pleural effusion is identified. No pneumothorax is seen. The skeletal structures are osteopenic. The bony thorax is grossly intact. IMPRESSION: Cardiomegaly with no acute cardiopulmonary abnormality. Electronically signed by: Lopez Godoy M.D. 06/02/2019 7:48 PM SINGLE VIEW PELVIS CLINICAL HISTORY: Fall. FINDINGS: 2 AP, portable, supine pelvic radiographs are compared to study dated 05/11/2018. The skeletal structures are osteopenic. There is no radiographic evidence of acute fracture involving the hips or bony pelvis. Moderate degenerative change and joint space narrowing is seen in the hips. Mild degenerative sclerosis is noted in the sacroiliac joints. Lumbosacral spondylosis is partially imaged. There are numerous pelvic phleboliths. Brachytherapy seeds are noted in the prostate gland. There is no evidence of bowel obstruction. The overlying soft tissues are normal as imaged. IMPRESSION: No acute bony abnormality is identified. Electronically signed by: Lopez Godoy M.D. 06/02/2019 7:46 PM ECG Data Attestation: I personally reviewed and interpreted this ECG as follows: Indication: altered mental status Rate (beats per minute): 57 Rhythm: sinus bradycardia Findings: + left axis deviation; no PVC Comparison ECG Date: no prior available Blood Pressure Blood Pressure Findings: Elevated blood pressure Blood Pressure Disposition: further management by hospitalist LESLIE Narrative Patient is an 84-year-old male who was seen here earlier this morning who presents for persistent recurrent falls. Patient was placed living facility/[facility] this past Thursday. Patient has become progressively more confused. He is no longer oriented to person place or year. Daughter notes that he is normally oriented to all these. Following evaluation earlier today he went back and had multiple falls. He was transported back here. Vitals are stable. Labs were obtained and showed no significant leukocytosis or anemia. INR was unremarkable. BMP along with FTs bilirubin and troponin were normal. TSH was normal. UA was negative. CT of the head and cervical spine were negative. Chest x-ray and pelvis x-ray were unremarkable. Daughter was updated bedside. Patient will be observed overnight as they will likely need to be placed in a new facility. Discussed with the hospitalist Impression & Plan Recurrent falls, Facial contusion, Altered mental status Discharge Plan Visit Data Chief Complaint: Fall Stated Complaint: CONFUSION ED Provider: Corky Smith Discharge Problem: Recurrent falls, Facial contusion, Altered mental status Patient Disposition: Being Evaluated by Hospitalist Forms Stand Alone Forms: My [facility] Prescriptions Prescriptions: No Action trazodone 100 mg tablet 100 mg PO HS Qty: 30 RF: 2 ascorbic acid (vitamin C) 500 mg capsule 500 mg PO QAM RF: 0 omeprazole 20 mg tablet,delayed release (DR/EC) 20 mg PO QAM RF: 0 maine (Zingiber officinalis) 250 mg capsule 250 mg PO BID RF: 0 calcium carbonate 500 mg calcium (1,250 mg) tablet 500 mg PO QAM RF: 0 lutein 20 mg tablet 20 mg PO QAM RF: 0 omega-3 acid ethyl esters 1 gram capsule 1 g PO QAM Qty: 60 RF: 0 cyanocobalamin (vitamin B-12) 500 mcg tablet 500 mcg PO BID RF: 0 magnesium oxide 400 mg (241.3 mg magnesium) tablet 400 mg PO QAM Qty: 60 RF: 0 cholecalciferol (vitamin D3) 2,000 unit tablet 2,000 units PO BIDM RF: 0 Systane Ultra 0.4-0.3 % Drops 1 drp OPHTHALMIC (EYE) DAILY RF: 0 Zioptan (PF) 0.0015 % dropperette 1 drp OPB QPM RF: 0 lorazepam 1 mg Tablet 1 mg PO TID PRN (Reason: ANXIETY/RESTLESSNESS) RF: 0 scopolamine base [Transderm-Scop] 1 mg over 3 days Patch 3 Day 1 patch TRANSDERMAL Q3D RF: 0 Glucosamine Chondroitin 550-30-1 mg Capsule 1 cap PO QAM RF: 0 clopidogrel 75 mg tablet 75 mg PO QAM RF: 0 zinc gluconate 30 mg tablet 30 mg PO .ON HOLD RF: 0 Referrals Referrals: JOSSELINE COPELAND [Primary Care Provider] - Discharge Problem: Facial contusion Qualifiers: Encounter type: initial encounter Qualified Code(s): S00.83XA - Contusion of other part of head, initial encounter Altered mental status Qualifiers: Altered mental status type: unspecified Qualified Code(s): R41.82 - Altered mental status, unspecified The scribe's documentation has been prepared under my direction and personally reviewed by me in its entirety. I confirm that the note above accurately reflects all work, treatment, procedures, and medical decision making performed by me.
[2019-06-03] MEDS ORDERED: ALUMINUM/MAGNESIUM SUSP 30 ML UDC PO PRN (00:22)
[2019-06-03] MEDS ORDERED: ACETAMINOPHEN 325 MG TAB PO PRN (00:22)
[2019-06-03] MEDS ORDERED: ONDANSETRON INJ 2 MG/ML 2 ML VIAL IV PRN (00:22)
[2019-06-03] MEDS ORDERED: MAGNESIUM HYDROXIDE SUSP 30 ML UDC PO PRN (00:22)
[2019-06-03] MEDS: CYANOCOBALAMIN 500 MCG TABLET (VITAMIN B-12) PO SCH ×3 (01:16→21:33)
--- NOTE | 2019-06-03 08:14 | Family Medicine Progress Note ---
Date of Service June 03, 2019 Assessment & Plan (1) Altered mental status: #Altered mental status confusion/dementia/anxiety with depression- Underlying vascular dementia that is likely progressive. Recent decreased oral intake. He may have had an additional CVA recently, however, CT head is normal, and will likely need sedated to perform an MRI. -Hold trazodone, lorazepam and Transderm scopolamine -Cancel neurology consult is more appropriate for outpatient evaluation -For now, hold nutraceuticals to minimize pill taking: Vitamin C, calcium carbonate, vitamin D3, [place], lutein, mag oxide, fish oil can resume nutraceuticals on discharge -PRN Haldol ordered in case patient becomes violent or agitated give 5 wait 30- 60 min and repeat for a max of 30 mg in 24 hours #Vascular dementia: -Continue clopidogrel. -Needs placement in a dementia unit, per patient family bed available in [facility] and another one in [place] #Recurrent falls: Likely multifactorial Progressive dementia, Recent institution of Lorazepam, and had taken his first dose of trazodone 100 mg at bedtime last night, which will also be held, may be contributing to falls associated with orthostatic hypotension. -Hold lorazepam due to potential side effects. -Hold trazodone due to potential side effect of orthostatic hypotension and confusion. #Facial trauma/facial contusion/abrasions- Imaging obtained given history of recent fractures, cervical spine CT negative, chest x-ray negative, head CT negative, pelvis x-ray negative, cervical spine CT negative, face CT demonstrating facial bone fracture, head CT negative -Nothing to do for facial fracture -Consulted wound care -Analgesia as indicated #Facial contusion: See above #Depression with anxiety: Vascular dementia/depression with anxiety- -see above FENa:Heart healthy Code Status: DNR/DNI DVT PPX: SCDs Dispo: Pending placement Supervising Physician Co-Signing Physician Notes I personally examined the patient and verified all lim points of history and exam, discussed case, and agree with decision making with Dr Navarrete. No meaningful HPI or review of systems obtained from patient. Family notes a progressive decline over the last decade that is gotten very severe recently. Unfortunately while he was placed at personal care, his behaviors are too erratic for that particular facility to keep him safe. Vitals noted, in general he is awake and alert disoriented pleasant no distress. HEENT normocephalic he does have bruising on the front of his face, mucous membranes moist. Breathing unlabored no accessory muscle use. No focal neuro deficits. Dementiaappears to be quite severe, based on review of charts appears predominantly on the basis of vascular dementia, certainly he could have elements of Alzheimer's type as well. There does not appear to be much of anything overt or obvious as far as a an acute delirium that can be reversed, although certainly his psychoactive meds of trazodone and Ativan have been discontinued. Work on safe placement, follow behaviors, redirection and reassurance as possible. Dr. Navarrete called the family at their request and answered questions to the best of his ability. otherwise as above Subjective History limited due to patient's current mental status. The patient's daughter in the room, she stated that this is been a progressive vascular dementia this been occurring over the years, the family is aware the prognosis. They have been attempting alternative therapies as an outpatient, with limited success. Stated the patient recently became a resident of [facility], however they are were unable to provide him with adequate level of care. He attempted to make out with other residents, leaving his bed in the evening, and stealing food of the cafeteria at inappropriate times. Per the family there is a bed available [facility], if not there is a memory unit in [place] they are interested in proceeding. All questions answered, no acute concerns canceled neuro consult as this is more appropriate for outpatient evaluation. Physical Exam Physical Exam: General: No acute distress HEENT: Facial trauma from falls, some bruising Neck: Normal visual inspection Cardiac: Regular rhythm, normal S1, normal S2 Respiratory: CTA BL Neuro: AAO x0 Psych: Calm, cooperative, happy Results & Data Vital Signs (Past 12 Hours) Vital Signs Temp Pulse Resp BP Pulse Ox 06/03/19 07:23 36.4 C L 55 L 21 128/81 94 06/03/19 00:49 36.4 C L 54 L 18 104/60 94 06/02/19 22:52 60 18 137/79 97 06/02/19 22:21 59 L 20 146/87 H 94 06/02/19 20:13 60 18 142/74 H 92 PG Care Time/CCT Total # of Minutes Spent Total Time Spent with Patient: Total time spent is greater than 50% in coordination of care (as documented) at patient's floor/unit and/or counseling patient: Resident Activity Tracking Resident Involvement: Resident Care Provided Care Provided: Adult Hospital Medicine (1) Altered mental status Altered mental status type: unspecified Qualified Code(s): R41.82 - Altered mental status, unspecified
[2019-06-03] MEDS ORDERED: NON-FORMULARY MEDICATION (Lutein 20 MG) PO SCH (09:00)
[2019-06-03] MEDS ORDERED: NON-FORMULARY MEDICATION (Glucos Sul 2kcl-Msm-Chond-C-Mn [Glucosamine Chondroitin] 1 CAP) PO SCH (09:00)
[2019-06-03] MEDS: OMEGA-3 (PURIFIED FISH OIL) 1 GM CAP PO SCH (09:47)
[2019-06-03] MEDS: CLOPIDOGREL BISULFATE 75 MG TAB PO SCH (09:47)
[2019-06-03] MEDS: MAGNESIUM OXIDE 400 MG TAB PO SCH (09:47)
[2019-06-03] MEDS: ZINC SULFATE 220 MG CAPSULE PO SCH (09:48)
[2019-06-03] MEDS: CHOLECALCIFEROL 1,000 UNITS TAB PO SCH ×2 (09:48→17:16)
[2019-06-03] MEDS: CALCIUM CARBONATE 1250MG TAB PO SCH (09:48)
[2019-06-03] MEDS: ASCORBIC ACID 500 MG TAB PO SCH (09:48)
[2019-06-03] MEDS: PANTOprazole 40 MG TAB PO SCH (09:48)
[2019-06-03] MEDS: ARTIFICIAL TEARS OP SCH (09:49)
[2019-06-03] MEDS: HALOPERIDOL LACTATE 5 MG/ML 1 ML VIAL IM PRN ×2 (16:11→20:24)
[2019-06-03] MEDS: TAFLUPROST OPB SCH (21:16)
[2019-06-04] MEDS: HALOPERIDOL LACTATE 5 MG/ML 1 ML VIAL IM PRN (00:20)
[2019-06-04] MEDS: CALCIUM CARBONATE 1250MG TAB PO SCH (08:22)
[2019-06-04] MEDS: MAGNESIUM OXIDE 400 MG TAB PO SCH (08:22)
[2019-06-04] MEDS: CYANOCOBALAMIN 500 MCG TABLET (VITAMIN B-12) PO SCH ×2 (08:22→20:18)
[2019-06-04] MEDS: CHOLECALCIFEROL 1,000 UNITS TAB PO SCH ×2 (08:22→17:09)
[2019-06-04] MEDS: PANTOprazole 40 MG TAB PO SCH (08:22)
[2019-06-04] MEDS: ARTIFICIAL TEARS OP SCH (08:23)
[2019-06-04] MEDS: ZINC SULFATE 220 MG CAPSULE PO SCH (08:23)
[2019-06-04] MEDS: OMEGA-3 (PURIFIED FISH OIL) 1 GM CAP PO SCH (08:23)
[2019-06-04] MEDS: CLOPIDOGREL BISULFATE 75 MG TAB PO SCH (08:23)
[2019-06-04] MEDS: ASCORBIC ACID 500 MG TAB PO SCH (08:23)
--- NOTE | 2019-06-04 14:00 | Family Medicine Progress Note ---
Date of Service June 04, 2019 Assessment & Plan (1) Altered mental status: Altered Mental Status Underlying vascular dementia that is likely progressive. -Hold trazodone, lorazepam and Transderm scopolamine Patient became agitated and aggressive yesterday requiring PRN haldol to be given, though he appears calm and sedated today and has no recollection of the events from yesterday. -PRN Haldol ordered in case patient becomes violent or agitated give 5 wait 30- 60 min and repeat for a max of 30 mg in 24 hours Vascular Dementia -Continue clopidogrel. -Needs placement in a dementia unit, per patient family bed available in [facility] and another one in [place] Recurrent falls: Likely multifactorial Progressive dementia, Recent institution of Lorazepam, and had taken his first dose of trazodone 100 mg at bedtime last night, which will also be held, may be contributing to falls associated with orthostatic hypotension. -Hold lorazepam due to potential side effects. -Hold trazodone due to potential side effect of orthostatic hypotension and confusion. Facial Trauma/Abrasions Imaging obtained given history of recent fractures, cervical spine CT negative, chest x-ray negative, head CT negative, pelvis x-ray negative, cervical spine CT negative, face CT demonstrating facial bone fracture, head CT negative -Nothing to do for facial fracture -Consulted wound care -Analgesia as indicated FENa:Heart healthy Code Status: DNR/DNI DVT PPX: SCDs Dispo: Pending placement Supervising Physician Co-Signing Physician Notes I personally examined the patient and verified all lim points of history and exam, discussed case, and agree with decision making with Dr Rick. No meaningful HPI or review of systems obtained from patient. CADDY PACKER in the room notes he is been somewhat anxious but otherwise okay. Vitals noted, in general he is awake and alert disoriented pleasant no distress. HEENT normocephalic bruising on face is healing well, mucous membranes moist. Breathing unlabored no accessory muscle use. No focal neuro deficits. Dementiaappears to be quite severe, based on review of charts appears predominantly on the basis of vascular dementia, certainly he could have elements of Alzheimer's type as well. Continue supportive care and reassurance. Case management working on safe disposition. otherwise as above Subjective Mr. Viera is resting comfortably this morning watching television awake in bed. He is able to answer all of my review of systems questions clearly and accurately, however when I asked him questions of orientation he is only able to tell me his name and comes up short on location date situation and recent events of his hospitalization. His one to one tells me he has been very confused and very anxious repeatedly trying to get out of bed. Physical Exam Constitutional: cooperative and comfortable; no acute distress Abrasions across forehead and orbit from fall Respiratory: No respiratory distress chest expansion symmetric lung sounds vesicular bilaterally to auscultation Cardiovascular: Heart sounds dual regular rate and rhythm no murmurs rubs heaves or gallops no edema Gastrointestinal (Abdomen): Abdomen soft nontender no organomegaly no masses detected Skin: abrasions on face and hands. Results & Data Vital Signs (Past 12 Hours) Vital Signs Temp Pulse Resp BP Pulse Ox 06/04/19 09:52 36.5 C 58 L 18 149/78 H 96 PG Care Time/CCT Total # of Minutes Spent Total Time Spent with Patient: Total time spent is greater than 50% in coordination of care (as documented) at patient's floor/unit and/or counseling patient: Resident Activity Tracking Resident Involvement: Resident Care Provided Care Provided: Adult Hospital Medicine (1) Altered mental status Altered mental status type: unspecified Qualified Code(s): R41.82 - Altered mental status, unspecified
[2019-06-04] MEDS: TAFLUPROST OPB SCH (21:22)
[2019-06-05] MEDS: HALOPERIDOL LACTATE 5 MG/ML 1 ML VIAL IM PRN (02:52)
[2019-06-05] MEDS: PANTOprazole 40 MG TAB PO SCH (08:18)
[2019-06-05] MEDS: CHOLECALCIFEROL 1,000 UNITS TAB PO SCH ×2 (08:18→16:14)
[2019-06-05] MEDS: ARTIFICIAL TEARS OP SCH (08:18)
[2019-06-05] MEDS: CLOPIDOGREL BISULFATE 75 MG TAB PO SCH (08:18)
[2019-06-05] MEDS: OMEGA-3 (PURIFIED FISH OIL) 1 GM CAP PO SCH (08:18)
[2019-06-05] MEDS: CALCIUM CARBONATE 1250MG TAB PO SCH (08:18)
[2019-06-05] MEDS: ASCORBIC ACID 500 MG TAB PO SCH (08:18)
[2019-06-05] MEDS: MAGNESIUM OXIDE 400 MG TAB PO SCH (08:18)
[2019-06-05] MEDS: CYANOCOBALAMIN 500 MCG TABLET (VITAMIN B-12) PO SCH ×2 (08:18→20:25)
[2019-06-05] MEDS: ZINC SULFATE 220 MG CAPSULE PO SCH (08:18)
--- NOTE | 2019-06-05 08:35 | Family Medicine Progress Note ---
Date of Service June 05, 2019 Assessment & Plan (1) Altered mental status: Altered Mental Status Underlying vascular dementia that is likely progressive. Patient was much calmer yesterday during the day but became quite agitated overnight/early this morning PRN Haldol ordered in case patient becomes violent or agitated. Has required his PRN dosing last 3 days, may consider adding seroquel at bedtime to try to prevent agitated owning. Await[facility] at [facility] Vascular Dementia Continuing clopidogrel Will await case management finding a bed Recurrent falls: Likely multifactorial Progressive dementia, Recent institution of Lorazepam, and had taken his first dose of trazodone 100 mg at bedtime last night, which will also be held, may be contributing to falls associated with orthostatic hypotension. -Hold lorazepam due to potential side effects. -Hold trazodone due to potential side effect of orthostatic hypotension and confusion. Facial Trauma/Abrasions Imaging obtained given history of recent fractures, cervical spine CT negative, chest x-ray negative, head CT negative, pelvis x-ray negative, cervical spine CT negative, face CT demonstrating facial bone fracture, head CT negative -Nothing to do for facial fracture -Consulted wound care -Analgesia as indicated FENa:Heart healthy Code Status: DNR/DNI DVT PPX: SCDs Dispo: Pending placement Supervising Physician Co-Signing Physician Notes I personally examined the patient and verified all lim points of history and exam, discussed case, and agree with decision making with Dr Rick. No meaningful HPI or review of systems obtained from patient. last night's issues noted. no current problems. Vitals noted, in general he is awake and alert disoriented pleasant no distress. HEENT normocephalic bruising on face is healing well, mucous membranes moist. Breathing unlabored no accessory muscle use. No focal neuro deficits. Dementiaappears to be quite severe, based on review of charts appears predominantly on the basis of vascular dementia, certainly he could have elements of Alzheimer's type as well. awaiting safe disposition. continue current care for now. In regards to his frequent agitation episodes, I would refrain from any chronic treatment at this time, given that he has had rapidly changing environments, and is currently in a hospital setting. Once he is in his permanent setting, and after he has had a chance to adapt, if he is still having significant behavioral episodes, then a discussion with the family on risk/benefit of more chronic treatment could be undertaken. Right now the safest answer is what we are currently doing with attempts to redirect and calm, with Haldol as needed severe agitation only otherwise as above Subjective Mr. Viera is sitting up enjoying his breakfast this morning, he is in a good mood and has no questions or concerns this morning, a full review of systems was negative, but the reliability of his report is always dubious as he is quite confused and not oriented to anything but person. Review of Systems Review of Systems: Unobtainable due to cognitive status Physical Exam Constitutional: cooperative and comfortable; no acute distress Abrasions across forehead and orbit from fall Neck: normal visual inspection; neck nontender No lymph nodes palpable Respiratory: No respiratory distress chest expansion symmetric lung sounds vesicular bilaterally to auscultation Cardiovascular: Heart sounds dual regular rate and rhythm no murmurs rubs heaves or gallops no edema Gastrointestinal (Abdomen): Abdomen soft nontender no organomegaly no masses detected Skin: abrasions on face and hands. Results & Data Vital Signs (Past 12 Hours) Vital Signs Temp Pulse Resp BP Pulse Ox 06/05/19 08:15 36.7 C 81 20 97/65 L 91 PG Care Time/CCT Total # of Minutes Spent Total Time Spent with Patient: Total time spent is greater than 50% in coordination of care (as documented) at patient's floor/unit and/or counseling patient: Resident Activity Tracking Resident Involvement: Resident Care Provided Care Provided: Adult Hospital Medicine (1) Altered mental status Altered mental status type: unspecified Qualified Code(s): R41.82 - Altered mental status, unspecified
[2019-06-05] MEDS: TAFLUPROST OPB SCH (20:25)
[2019-06-06] MEDS: PANTOprazole 40 MG TAB PO SCH (08:03)
[2019-06-06] MEDS: CHOLECALCIFEROL 1,000 UNITS TAB PO SCH ×2 (08:03→16:35)
[2019-06-06] MEDS: CYANOCOBALAMIN 500 MCG TABLET (VITAMIN B-12) PO SCH ×2 (08:03→20:08)
[2019-06-06] MEDS: CLOPIDOGREL BISULFATE 75 MG TAB PO SCH (08:03)
[2019-06-06] MEDS: MAGNESIUM OXIDE 400 MG TAB PO SCH (08:04)
[2019-06-06] MEDS: ZINC SULFATE 220 MG CAPSULE PO SCH (08:04)
[2019-06-06] MEDS: CALCIUM CARBONATE 1250MG TAB PO SCH (08:04)
[2019-06-06] MEDS: ASCORBIC ACID 500 MG TAB PO SCH (08:04)
[2019-06-06] MEDS: ARTIFICIAL TEARS OP SCH (08:04)
[2019-06-06] MEDS: OMEGA-3 (PURIFIED FISH OIL) 1 GM CAP PO SCH (08:04)
--- NOTE | 2019-06-06 16:45 | Family Medicine Progress Note ---
Date of Service June 06, 2019 Assessment & Plan (1) Altered mental status: Altered Mental Status Underlying vascular dementia that is likely progressive. Patient was calm yesterday but impulsive and trying to stand unless redirected PRN Haldol ordered in case patient becomes violent or agitated. Had required his PRN dosing previous 3 days, but none in last 24 hours Hopeful for [place] tomorrow Vascular Dementia Continuing clopidogrel Case management hopeful for placement tomorrow Recurrent falls: Likely multifactorial Progressive dementia, Recent institution of Lorazepam, and had taken his first dose of trazodone 100 mg at bedtime last night, which will also be held, may be contributing to falls associated with orthostatic hypotension. -Hold lorazepam due to potential side effects. -Hold trazodone due to potential side effect of orthostatic hypotension and confusion. Facial Trauma/Abrasions Imaging obtained given history of recent fractures, cervical spine CT negative, chest x-ray negative, head CT negative, pelvis x-ray negative, cervical spine CT negative, face CT demonstrating facial bone fracture, head CT negative -Nothing to do for facial fracture FENa:Heart healthy Code Status: DNR/DNI DVT PPX: SCDs Dispo: Pending placement Supervising Physician Co-Signing Physician Notes I personally examined the patient and verified all lim points of history and exam, discussed case, and agree with decision making with Dr Rick. No meaningful HPI or review of systems obtained from patient. Daughter present. Case discussed extensively with her. We are both in agreement that personal care with dementia abilities would be the ideal setting for him, versus less araseli al being SNF on the locked dementia unit. We also discussed the current need for Haldol, and the fact that it is likely because of the hospital being a much more provoking environment, and discussed the overall idea of risk and benefit and chronic behavioral medications with someone with dementia. Right now we are both in agreement that holding off on chronic medications makes sense, as likely once he gets to a stable environment, while it may take a little time, he will likely settle in and be more calm. Vitals noted, in general he is awake and alert disoriented pleasant no distress. HEENT normocephalic bruising on face is healing well, mucous membranes moist. Breathing unlabored no accessory muscle use. No focal neuro deficits. Dementiaappears to be quite severe, based on review of charts appears predominantly on the basis of vascular dementia, certainly he could have elements of Alzheimer's type as well. awaiting safe disposition. continue current care for now. See above discussions with daughter. Hold off on chronic behavioral medications for now. Await safe disposition. Discussed with case management and offered to discuss with potential receiving facilities if it would be of benefit otherwise as above Subjective Mr. Viera resting comfortably eating breakfast and daughter at bedside. Reportedly he has been very calm and has not needed his IM haldol in 24 hours Review of Systems Review of Systems: Unobtainable due to cognitive status Physical Exam Physical Exam: Constitutional: cooperative and comfortable; no acute distress Abrasions across forehead and orbit from fall Neck: normal visual inspection; neck nontender No lymph nodes palpable Respiratory: No respiratory distress chest expansion symmetric lung sounds vesicular bilaterally to auscultation Cardiovascular: Heart sounds dual regular rate and rhythm no murmurs rubs heaves or gallops no edema Gastrointestinal (Abdomen): Abdomen soft nontender no organomegaly no masses detected Skin: abrasions on face and hands. Results & Data Vital Signs (Past 12 Hours) Vital Signs Temp Pulse Resp BP 06/06/19 16:00 36.4 C L 63 20 138/91 PG Care Time/CCT Total # of Minutes Spent Total Time Spent with Patient: Total time spent is greater than 50% in coordination of care (as documented) at patient's floor/unit and/or counseling patient: Resident Activity Tracking Resident Involvement: Resident Care Provided Care Provided: Adult Hospital Medicine (1) Altered mental status Altered mental status type: unspecified Qualified Code(s): R41.82 - Altered mental status, unspecified
[2019-06-06] MEDS: TAFLUPROST OPB SCH (20:09)
[2019-06-07] MEDS: HALOPERIDOL LACTATE 5 MG/ML 1 ML VIAL IM PRN (04:22)
[2019-06-07] MEDS: ZINC SULFATE 220 MG CAPSULE PO SCH (08:06)
[2019-06-07] MEDS: CYANOCOBALAMIN 500 MCG TABLET (VITAMIN B-12) PO SCH (08:06)
[2019-06-07] MEDS: ARTIFICIAL TEARS OP SCH (08:06)
[2019-06-07] MEDS: MAGNESIUM OXIDE 400 MG TAB PO SCH (08:07)
[2019-06-07] MEDS: OMEGA-3 (PURIFIED FISH OIL) 1 GM CAP PO SCH (08:07)
[2019-06-07] MEDS: CHOLECALCIFEROL 1,000 UNITS TAB PO SCH (08:07)
[2019-06-07] MEDS: ASCORBIC ACID 500 MG TAB PO SCH (08:07)
[2019-06-07] MEDS: CALCIUM CARBONATE 1250MG TAB PO SCH (08:07)
[2019-06-07] MEDS: PANTOprazole 40 MG TAB PO SCH (08:07)
[2019-06-07] MEDS: CLOPIDOGREL BISULFATE 75 MG TAB PO SCH (08:07)
--- NOTE | 2019-06-07 17:20 | Discharge Summary ---
Date of Service June 07, 2019 Admission HPI Per Admitting Provider The patient is a 84-year-old male with a past medical history including vascular dementia, who has had progressively worsening confusion over the past few months and more recently has had recurrent falls. He was assessed in the ED this morning, was released back to [facility] in [place], but was brought back into the emergency department by his daughter this evening, due to worsening confusion and a fall this morning. She reports that he has been getting progressively weaker. She was concerned that Ativan he had been given to help with agitation may have made things worse. Of note, the patient was given trazodone 100 mg at bedtime for the first time last night. Principal Diagnosis Severe dementia Discharge Exam In general he is awake and alert disoriented. His head has facial abrasions and wounds that are healing. Mucous members are moist. Breathing is unlabored no accessory muscle use good effort. Skin shows no rashes no pallor or icterus. Neuro shows cranial nerves II through XII be grossly intact gross motor and sensory are intact. Discharge Data Allergies Allergy/AdvReac Type Severity Reaction Status Date / Time cashew nut Allergy Intermediate SWELLING Verified 06/02/19 05:39 OF TONGUE AND THROAT galantamine Allergy Unknown ON Verified 06/02/19 05:39 [facility] LIST lactase [From [employer]] AdvReac Unknown ON [facility] Verified 06/02/19 05:39 LIST Consultations 06/02/19 21:22 ED Decision to Admit Stat 06/03/19 00:22 Consult Case Management - Discharge Planning Routine Ordered Studies 06/02/19 19:00 CT cervical spine wo con Stat CT SCAN OF THE CERVICAL SPINE CLINICAL HISTORY: Fall. COMPARISON STUDY: CT of the cervical spine performed earlier the same day 06/02/2019. TECHNIQUE: CT scan of the cervical spine is performed from the skull base to the upper thoracic spine. Images are reviewed in the axial, sagittal, and coronal planes. IV contrast was not administered for this examination. A dose lowering technique was utilized adhering to the principles of ALARA. FINDINGS: Skeletal structures: The skeletal structures are osteopenic. There is no evidence of fracture or subluxation involving the cervical spine. Vertebral body height and alignment are maintained. There is straightening of the cervical lordosis with reversal centered at C4-C5. Anterior osteophytes are seen throughout. The odontoid process and lateral masses are intact. The atlantoaxial articulation is preserved noting productive degenerative change. The spinous processes appear intact. There is moderate multilevel cervical spondylosis. Uncovertebral and facet arthropathy contribute to neural foraminal stenosis at several levels. Intervertebral discs: There is advanced disc space narrowing seen at C5-C6 and C6-C7. Moderate disc space narrowing is seen at C4-C5. Central canal: Posterior disc osteophyte complexes at C4-C5, C5-C6, and C6-C7 likely contribute to acquired compromise of the central canal. Soft tissues: The prevertebral and paraspinous soft tissues are within normal limits. A large calcification is noted in the left thyroid lobe. Calvarium: The visualized calvarium at the skull base appears intact. Brain parenchyma: Partially visualized brain parenchyma the skull base is within normal limits. Sinuses and mastoids: The visualized paranasal sinuses are clear. The mastoid air cells are well pneumatized. Lung apices: Clear as visualized. IMPRESSION: There is no evidence of fracture or subluxation involving the cervical spine. No change from today's earlier examination. Electronically signed by: Lopez Godoy M.D. 06/02/2019 8:11 PM Lab Results 06/02/19 06/02/19 06/02/19 Range/Units 17:29 17:29 17:29 WBC 8.32 (4.8-10.8) K/uL RBC 5.37 (4.7-6.1) M/uL Hgb 16.7 (14.0-18.0) g/dL Hct 48.4 (42-52) % MCV 90.1 (80-100) fL MCH 31.1 (25-34) pg MCHC 34.5 (32-36) g/dL RDW Std Deviation 44.0 (36.4-46.3) fL RDW Coeff of Irais 13.4 (11.5-14.5) % Plt Count 132 (130-400) K/uL MPV 12.3 H (7.4-10.4) fL Immature Gran % (Auto) 0.2 % Neut % (Auto) 71.0 % Lymph % (Auto) 17.9 % Harney % (Auto) 9.4 % Eos % (Auto) 1.3 % Baso % (Auto) 0.2 % Immature Gran # (Auto) 0.02 (0.00-0.02) K/uL Neut # (Auto) 5.90 (1.4-6.5) K/uL Lymph # (Auto) 1.49 (1.2-3.4) K/uL Harney # (Auto) 0.78 H (0.11-0.59) K/uL Eos # (Auto) 0.11 (0-0.5) K/uL Baso # (Auto) 0.02 (0-0.2) K/uL PT 10.3 (9.0-12.0) Seconds INR 1.0 (0.9-1.1) Sodium 143 (136-145) mmol/L Potassium 3.8 (3.5-5.1) mmol/L Chloride 107 (98-107) mmol/L Carbon Dioxide 31 (21-32) mmol/L Anion Gap 5.0 (3-11) BUN 11 (7-18) mg/dl Creatinine 0.91 (0.6-1.4) mg/dl Est Cr Clr Drug Dosing Not Reportable Est GFR ( Amer) 88.1 Est GFR (Non-Af Amer) 76.0 BUN/Creatinine Ratio 12.0 (10-20) Glucose 90 (70-99) mg/dl Calcium 9.6 (8.5-10.1) mg/dl Total Bilirubin 0.9 (0.2-1) mg/dl AST 24 (15-37) U/L ALT 34 (12-78) U/L Alkaline Phosphatase 81 (45-117) U/L Troponin I < 0.015 (0-0.045) ng/ml Total Protein 7.2 (6.4-8.2) gm/dl Albumin 4.1 (3.4-5.0) gm/dl Globulin 3.1 (2.5-4.0) gm/dl Albumin/Globulin Ratio 1.3 (0.9-2) TSH 1.820 (0.300-4.500) uIu/ml Urine Color Urine Appearance (Clear) Urine pH (4.5-7.5) Ur Specific [place] (1.000-1.030) Urine Protein (Negative) Urine Glucose (UA) (Negative) Urine Ketones (Negative) Urine Blood (Negative) Urine Nitrite (Negative) Urine Bilirubin (Negative) Urine Urobilinogen (Negative) Ur Leukocyte Esterase (Negative) 06/02/19 Range/Units 20:11 WBC (4.8-10.8) K/uL RBC (4.7-6.1) M/uL Hgb (14.0-18.0) g/dL Hct (42-52) % MCV (80-100) fL MCH (25-34) pg MCHC (32-36) g/dL RDW Std Deviation (36.4-46.3) fL RDW Coeff of Irais (11.5-14.5) % Plt Count (130-400) K/uL MPV (7.4-10.4) fL Immature Gran % (Auto) % Neut % (Auto) % Lymph % (Auto) % Har[place] % (Auto) % Eos % (Auto) % Baso % (Auto) % Immature Gran # (Auto) (0.00-0.02) K/uL Neut # (Auto) (1.4-6.5) K/uL Lymph # (Auto) (1.2-3.4) K/uL Harney # (Auto) (0.11-0.59) K/uL Eos # (Auto) (0-0.5) K/uL Baso # (Auto) (0-0.2) K/uL PT (9.0-12.0) Seconds INR (0.9-1.1) Sodium (136-145) mmol/L Potassium (3.5-5.1) mmol/L Chloride (98-107) mmol/L Carbon Dioxide (21-32) mmol/L Anion Gap (3-11) BUN (7-18) mg/dl Creatinine (0.6-1.4) mg/dl Est Cr Clr Drug Dosing Est GFR ( Amer) Est GFR (Non-Af Amer) BUN/Creatinine Ratio (10-20) Glucose (70-99) mg/dl Calcium (8.5-10.1) mg/dl Total Bilirubin (0.2-1) mg/dl AST (15-37) U/L ALT (12-78) U/L Alkaline Phosphatase (45-117) U/L Troponin I (0-0.045) ng/ml Total Protein (6.4-8.2) gm/dl Albumin (3.4-5.0) gm/dl Globulin (2.5-4.0) gm/dl Albumin/Globulin Ratio (0.9-2) TSH (0.300-4.500) uIu/ml Urine Color Yellow Urine Appearance Clear (Clear) Urine pH 7.5 (4.5-7.5) Ur Specific [place] 1.015 (1.000-1.030) Urine Protein Negative (Negative) Urine Glucose (UA) Negative (Negative) Urine Ketones Negative (Negative) Urine Blood Negative (Negative) Urine Nitrite Negative (Negative) Urine Bilirubin Negative (Negative) Urine Urobilinogen Negative (Negative) Ur Leukocyte Esterase Negative (Negative) CT head/brain wo con Stat CT SCAN OF THE BRAIN WITHOUT IV CONTRAST CLINICAL HISTORY: Fall. COMPARISON STUDY: CT of the brain performed earlier the same day 06/02/2019. TECHNIQUE: Unenhanced axial CT scan of the brain is performed from the vertex to the skull base. A dose lowering technique was utilized adhering to the principles of ALARA. CT DOSE: 1116.45 mGy.cm FINDINGS: Brain parenchyma: There are age-related involutional changes noting moderate subcortical and periventricular microangiopathic change. 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 There is no hemorrhage, mass effect, or evidence of acute territorial ischemia by CT criteria. Arguello-white matter differentiation is preserved. No extra-axial fluid collection is seen. Ventricles, sulci, cisterns: Prominent secondary to involutional change. Intracranial vasculature: There is atherosclerotic calcification of the cavernous carotid and vertebral arteries. Calvarium: The skeletal structures are osteopenic. No depressed calvarial fracture is identified. Sinuses and mastoids: The visualized paranasal sinuses are clear. The mastoid air cells are well pneumatized. Orbits: The bony orbits are grossly intact. IMPRESSION: There is no hemorrhage, mass effect, or evidence of acute territorial ischemia by CT criteria. No significant change from today's earlier examination. Hospital Course (1) Fall: Facial trauma is fallout, but this appears to be healing on its own. Otherwise appears to have mostly been due to wandering in the new environment, and effects of Ativan and trazodone which have been discontinued. Otherwise stable for transfer to a safe environment. (2) Facial trauma: Pain is been easy to control, this appears to require no specific intervention. (3) Vascular dementia: This is his main issue, unfortunately appears to have progressed to where he is requiring facility skilled in the care of dementia. We had extensive discussions with family, he is required occasional as needed doses of Haldol here for agitation, but certainly in the hospital is a much more agitating/delirogenic environment then personal care/dementia care would be. Right now the daughter and I had discussed yesterday role for chronic medications, but this role really being more of a risk-benefit balance if he proves himself to be agitated consistently to warrant the risk of the medication (things such as fatal arrhythmias, oversedation, increased fall risk) if the benefit were to be improved quality of life. We discussed that if this was the case, the antipsychotic medicines generally are agreed upon to be the "best bad choice" and therefore certainly we would not be resuming benzodiazepines or trazodone. We also agreed that right now is too soon to tell if he really were to fit that "quality of life" risk-benefit balance of initiating chronic medications for his behaviors, because once he is out of the hospital and in a stable environment it is quite possible that he will be much calmer more often than not. (4) Benign prostate hyperplasia: Outpatient follow-up. He did not show urinary retention here, but certainly if he were to have sudden onset agitation something like urinary retention would be reasonable to consider. Total Time Total Time Spent Total Time Spent (In Minutes): <30 Discharge Plan Discharge Items Patient Disposition: Personal [facility] Living Reason For Visit: [facility] Discharge Diagnosis: dementia Discharge Goals: Specific goals Activity: Resume your previous activity Non-emergency contact: Primary Care Provider Call non-emergency contact if: you have any medication questions Follow-up/Referrals: JOSSELINE COPELAND [Primary Care Provider] - Diet: Regular Addtl Provider Instructions: as we discussed, it would be normal to expect 1-2 weeks that behaviors could require redirection as he settles in to a new facility. hopefully as he adapts he will generally be calmer each day. Prescriptions: Continued ascorbic acid (vitamin C) 500 mg capsule 500 mg PO QAM RF: 0 omeprazole 20 mg tablet,delayed release (DR/EC) 20 mg PO QAM RF: 0 maine (Zingiber officinalis) 250 mg capsule 250 mg PO BID RF: 0 calcium carbonate 500 mg calcium (1,250 mg) tablet 500 mg PO QAM RF: 0 lutein 20 mg tablet 20 mg PO QAM RF: 0 omega-3 acid ethyl esters 1 gram capsule 1 g PO QAM Qty: 60 RF: 0 cyanocobalamin (vitamin B-12) 500 mcg tablet 500 mcg PO BID RF: 0 magnesium oxide 400 mg (241.3 mg magnesium) tablet 400 mg PO QAM Qty: 60 RF: 0 cholecalciferol (vitamin D3) 2,000 unit tablet 2,000 units PO BIDM RF: 0 Systane Ultra 0.4-0.3 % Drops 1 drp OPHTHALMIC (EYE) DAILY RF: 0 Zioptan (PF) 0.0015 % dropperette 1 drp OPB QPM RF: 0 Glucosamine Chondroitin 550-30-1 mg Capsule 1 cap PO QAM RF: 0 clopidogrel 75 mg tablet 75 mg PO QAM RF: 0 zinc gluconate 30 mg tablet 30 mg PO .ON HOLD RF: 0 Discontinued trazodone 100 mg tablet 100 mg PO HS Qty: 30 RF: 2 lorazepam 1 mg Tablet 1 mg PO TID PRN (Reason: ANXIETY/RESTLESSNESS) RF: 0 scopolamine base [Transderm-Scop] 1 mg over 3 days Patch 3 Day 1 patch TRANSDERMAL Q3D RF: 0 Stand-Alone Forms: [facility] Discharge Orders: Discharge Order (Routine); Ordered 06/07/19 Ordered By: Corky Menard Admission Data Admit Date/Time: 06/03/19 18:45 Attending Provider: Corky Menard Admit Provider: Luis Colvin Primary Care Provider: JOSSELINE COPELAND Other Providers: Luis Colvin Service: Telemetry Medical Other Interventions: Discharge Summary Assessment (RN) Last Done: 06/07/19 12:56 DC Date/Time DO NOT enter until pt leaves facility: 06/07/19 15:36
== END 2019-06-07 15:36 | disposition home or self-care (01) | DRG 884 ==
LOC: ED 17:50 → 2W 17:50 → SUATTDRO 22:46 → 2W 23:52